=== PATIENT | female | born 1960 | race Caucasian/White ===

== ENCOUNTER 2016-05-11 11:36 | Outpatient (CLI) | payer BC ==
--- NOTE | 2016-05-12 13:01 | Mammography Report ---
BILATERAL MAMMOGRAM: FINDINGS: The breast tissue is heterogeneously dense, which could obscure detection of small masses (approximately 50%-75% glandular). No mass, distortion, suspicious calcification, or skin change is seen. There are no significant changes when compared to prior exams dating back to 2015. CAD was utilized. IMPRESSION: Negative mammogram. There is no mammographic evidence of malignancy. RECOMMENDATION: Follow-up per ACS guidelines. BI-RADS CATEGORY: 1 = Negative ACR BI-RADS MAMMOGRAPHIC CODES: 0 = Needs additional imaging evaluation; 1 = Negative; 2 = Benign; 3 = Probably benign; 4 = Suspicious; 5 = Malignant; 6 = Known biopsy-proven malignancy COMMENT: 1. Dense breast tissue, i.e., adenosis, fibrocystic changes, etc., may obscure an underlying neoplasm. 2. Approximately 10% of cancers are not detected with mammography. 3. A negative mammography report should not delay biopsy if a clinically suspicious mass is present. COMMENT: Patient follow-up letters are generated in [employer].
== END 2016-05-11 11:37 | disposition home or self-care (01) ==
LOC: SPVWC 11:36
PROVIDERS: ATTEND Obstetrics & Gynecology
DX: Z12.31 Encounter for screening mammogram for malignant neoplasm of breast (principal)
CPT/HCPCS: 77067; G0202

== ENCOUNTER 2017-05-12 11:07 | Outpatient (CLI) | payer OTHER ==
--- NOTE | 2017-05-13 11:33 | Mammography Report ---
BILATERAL DIGITAL SCREENING MAMMOGRAM with CAD: 05/12/17 11:07:00 CLINICAL: Routine screening. COMPARISON:05/11/16 FINDINGS: The breasts are heterogeneously dense, which may obscure small masses. Left asymmetry and architectural distortion on the MLO view requires additional imaging.No suspicious calcifications.The right breast is negative. IMPRESSION: Left asymmetry and architectural distortion requiring further workup. BI-RADS CATEGORY: 0 -- Additional Imaging Evaluation Required RECOMMENDATION: Recall for left mediolateral and spot magnification MLO views and left breast ultrasound if needed. ACR BI-RADS MAMMOGRAPHIC CODES: 0 = Needs additional imaging evaluation; 1 = Negative; 2 = Benign; 3 = Probably benign; 4 = Suspicious; 5 = Malignant; 6 = Known biopsy-proven malignancy COMMENT: 1. Dense breast tissue, i.e., adenosis, fibrocystic changes, etc., may obscure an underlying neoplasm. 2. Approximately 10% of cancers are not detected with mammography. 3. A negative mammography report should not delay biopsy if a clinically suspicious mass is present. COMMENT: Patient follow-up letters are generated via our [employer] application.
== END 2017-05-12 11:08 | disposition home or self-care (01) ==
LOC: SPVWC 11:07
PROVIDERS: ATTEND Nurse Practitioner Gerontology
DX: Z12.31 Encounter for screening mammogram for malignant neoplasm of breast (principal)
CPT/HCPCS: 77067

== ENCOUNTER 2017-05-30 09:30 | Outpatient (CLI) | payer OTHER ==
--- NOTE | 2017-05-30 10:53 | Mammography Report ---
Spot compression magnification of circumscribed focal asymmetry upper left breast followed by sonographic examination of upper left breast: Findings: On spot magnification view the density is not visualized and probably obscured by glandular tissue in the region. No microcalcification is seen. On sonographic examination there is there is complex hyperechoic oval mass fairly well defined margin with scattered areas of internal echogenicity noted at 1:00 position 7 cm from nipple. There is a benign lymph node measuring 0.8 x 0.3 cm in diameter noted in left axilla. 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 Probably benign. Six-month followup with a left mammogram and sonogram recommended. BI-RADS CATEGORY: 3 = Probably benign ACR BI-RADS MAMMOGRAPHIC CODES: 0 = Needs additional imaging evaluation; 1 = Negative; 2 = Benign; 3 = Probably benign; 4 = Suspicious; 5 = Malignant; 6 = Known biopsy-proven malignancy COMMENT: 1. Dense breast tissue, i.e., adenosis, fibrocystic changes, etc., may obscure an underlying neoplasm. 2. Approximately 10% of cancers are not detected with mammography. 3. A negative mammography report should not delay biopsy if a clinically suspicious mass is present.
== END 2017-05-30 09:31 | disposition home or self-care (01) ==
LOC: SPVWC 09:30
PROVIDERS: ATTEND Advanced Practice Midwife
DX: N63.20 Unspecified lump in the left breast, unspecified quadrant (principal); N64.59 Other signs and symptoms in breast

== ENCOUNTER 2017-08-05 08:38 | Outpatient (CLI) | payer OTHER ==
--- NOTE | 2017-08-05 10:26 | Ultrasound Report ---
Left mammogram: The patient presents for biopsy of what was described on recent ultrasound is probable fibroadenoma. Ultrasound today however does not identify any discrete finding as suggested on prior ultrasound on May 30. The area of interest demonstrates benign fibroglandular tissue. There were no mammographic findings at that time. The patient is asymptomatic. Impression: No current abnormality warranting biopsy identified. This was discussed with the patient. Recommendation: Annual mammogram and clinical followup. Any additional evaluation at this time should be based on your concern. BI-RADS CATEGORY: 2 = Benign ACR BI-RADS MAMMOGRAPHIC CODES: 0 = Needs additional imaging evaluation; 1 = Negative; 2 = Benign; 3 = Probably benign; 4 = Suspicious; 5 = Malignant; 6 = Known biopsy-proven malignancy COMMENT: 1. Dense breast tissue, i.e., adenosis, fibrocystic changes, etc., may obscure an underlying neoplasm. 2. Approximately 10% of cancers are not detected with mammography. 3. A negative mammography report should not delay biopsy if a clinically suspicious mass is present.
== END 2017-08-05 08:39 | disposition home or self-care (01) ==
LOC: SPVWC 08:38
PROVIDERS: ATTEND Surgery
DX: N63.20 Unspecified lump in the left breast, unspecified quadrant (principal)

== ENCOUNTER 2017-09-07 08:20 | Outpatient (CLI) | payer OTHER ==
--- NOTE | 2017-09-07 12:07 | Ultrasound Report ---
ABDOMINAL ULTRASOUND: 09/07/17 08:20:00 CLINICAL: Epigastric pain. FINDINGS: High-resolution ultrasound demonstrates a borderline small liver with moderate diffuse increased echogenicity. The right lobe measures 13.5 cm in length. A subtle nodular echo pattern but no liver mass identified. The hepatic veins and portal veins are relatively small. The gallbladder is partially contracted with no stones. The gallbladder wall is asymmetrically thick and measures 3.5mm maximum. Normal and hepatic bile ducts. The common bile duct is mildly enlarged in measures 6.0 mm diameter. No evidence of choledocholithiasis or obstructing mass. The pancreas is adequately imaged and normal. Normal abdominal aorta. A normal spleen measures 8.9cm. Normal size kidneys with normal parenchymal echogenicity and normal non-dilated renal collecting systems and ureters. The right kidney measures 12.0 x 5.6 x 5.3cm. The left kidney measures 11.2 x 5.3 x 4.4cm. A right lower pole cyst measures 1.1 x 0.8 x 1.0 cm. A shadowing echogenic focus in the lower pole of the right kidney measures 11 mm. No ascites or mass. IMPRESSION: 1. A borderline small echogenic liver with subtle nodularity is suggestive of cirrhosis. 2. No signs of portal hypertension. 3. No cholelithiasis or choledocholithiasis. 4. Mild dilatation of the CBD with no identified etiology. 5. A nonobstructive 11 mm right lower pole renal calculus. 6. Mild nonspecific gall bladder wall thickening.
== END 2017-09-07 08:21 | disposition home or self-care (01) ==
LOC: SPVWC 08:20
PROVIDERS: ATTEND Internal Medicine Gastroenterology
DX: N20.0 Calculus of kidney (principal); K21.9 Gastro-esophageal reflux disease without esophagitis; K30 Functional dyspepsia; K82.8 Other specified diseases of gallbladder
CPT/HCPCS: 76700

== ENCOUNTER 2017-11-03 06:59 | Outpatient (CLI) | payer OTHER ==
[2017-11-03 07:56] LABS: Blood Urea Nitrogen 19 mg/dL (7-17)
--- NOTE | 2017-11-03 11:03 | Magnetic Resonance Report ---
MRI ABDOMEN WITH AND WITHOUT CONTRAST HISTORY: Right and left upper quadrant abdominal pain, abnormal finding of GI tract, gallbladder polyp. TECHNIQUE: Multiple T1 and T2-weighted images with and without fat suppression. Postcontrast dynamic imaging following IV gadolinium. COMPARISON: Ultrasound abdomen dated 09/07/17. FINDINGS: The liver is normal size and contour on MR. Mild diffuse fatty infiltration is noted throughout the liver. There is no evidence for cirrhosis on MR. No suspicious liver mass. The hepatic vasculature is patent. The gallbladder and biliary system are unremarkable on MRI. No evidence for polyp, stones or abnormal dilatation. The CBD measures 5.7 mm. The pancreas, spleen and adrenal glands are unremarkable. Both kidneys are normal size, contour and position. 1 cm cyst near the inferior pole of the right kidney is noted. No suspicious mass or hydronephrosis. The aorta is normal caliber. The visualized bowel loops are unremarkable. The appendix is not included. Normal bone marrow signal in the visualized spine. No abnormal enhancement is demonstrated following IV gadolinium. IMPRESSION: Mild fatty infiltration of the liver. No evidence for cirrhosis on MR. Normal biliary system. 1 cm right renal cyst. Otherwise, unremarkable MR of the abdomen with and without contrast.
== END 2017-11-03 07:00 | disposition home or self-care (01) ==
LOC: MRI 06:59
PROVIDERS: ATTEND Internal Medicine Gastroenterology
DX: K82.4 Cholesterolosis of gallbladder (principal); R10.12 Left upper quadrant pain; R10.11 Right upper quadrant pain
CPT/HCPCS: 36415; 74183; 82565; 84520; A9577

== ENCOUNTER 2019-01-16 09:15 | Outpatient (CLI) | payer BC ==
--- NOTE | 2019-01-16 15:20 | Mammography Report ---
DIGITAL SCREENING MAMMOGRAM WITH CAD, 01/16/2019 INDICATION: Routine screening mammography. TECHNIQUE: Digital bilateral 2D mammography was obtained in the craniocaudal and mediolateral obliq ue projections. This examination was interpreted with the benefit of Computer-Aided Detection analysi s. COMPARISON: 05/12/2017 FINDINGS: Breast Density: The breasts are heterogeneously dense, which may obscure small masses. Left asymmetries require additional imaging. No architectural distortion or suspicious calcifications . There is no evidence of dominant mass, suspicious calcifications or architectural distortion in the right breast. IMPRESSION: Left asymmetries requiring additional imaging. Recommend recall for left spot magnificati on views and left breast ultrasound if needed. Follow up recommendation: Special View: Mag Category 0: Incomplete. Needs additional imaging evaluation and/or prior mammograms for comparison. A "normal" or negative report should not discourage follow up or biopsy of a clinically significant f inding. A written summary of these findings will be mailed to the patient. The patient will be entered into a mammography reporting system which will generate a reminder letter for the patient's next appointmen t at the appropriate interval. The [employer] recommends yearly mammograms starting at age 40 and continuing as l kacey as a woman is in good health. Breast MRI is recommended for women with an approximate 20-25% or greater lifetime risk of breast cancer, including women with a strong family history of breast or ova oksana cancer or who have been treated for Hodgkin's disease. Signer Name: Gerber Araujo MD Signed: 01/16/2019 3:15 PM Workstation Name: [id number]
== END 2019-01-16 09:16 | disposition home or self-care (01) ==
LOC: SPVWC 09:15
PROVIDERS: ATTEND Obstetrics & Gynecology
DX: Z12.31 Encounter for screening mammogram for malignant neoplasm of breast (principal)
CPT/HCPCS: 77067

== ENCOUNTER 2019-01-30 14:31 | Outpatient (CLI) | payer BC ==
--- NOTE | 2019-01-30 15:52 | Ultrasound Report ---
LEFT DIGITAL DIAGNOSTIC MAMMOGRAM WITH CAD -- 01/30/2019 LEFT LIMITED BREAST ULTRASOUND INDICATION: Recall to evaluate asymmetries. F/U abnormal mammogram TECHNIQUE: Digital left mammographic imaging was performed. Magnification views were obtained. Limit ed ultrasound was performed. This examination was interpreted with the benefit of Computer-Aided Dete ction (CAD) analysis. COMPARISON: 01/16/2018 FINDINGS: Breast Density: The breasts are heterogeneously dense, which may obscure small masses. MAMMOGRAPHIC FINDINGS: Additional mammographic views were performed and are negative. Satisfactory ef facement of asymmetries on spot magnification views. ULTRASOUND FINDINGS: Targeted ultrasound evaluation was performed of the area of interest. Ultrasou nd of the upper left breast was performed and demonstrated no mass, cyst or suspicious shadowing. A b enign intramammary lymph node at 1:00 13 cm from the nipple measures 1 cm. IMPRESSION: Negative mammogram and negative left upper breast ultrasound. Follow up recommendation: Routine yearly BI-RADS Category 1: Negative. A "normal" or negative report should not discourage follow up or biopsy of a clinically significant f inding. A written summary of these findings will be mailed to the patient. The patient will be entered into a mammography reporting system which will generate a reminder letter for the patient's next appointmen t at the appropriate interval. According to the [employer], yearly mammograms are recommended starting at age 40 and continuing as long as a woman is in good health. Breast MRI is recommended for women with an don[place] roximately 20-25% or greater lifetime risk of breast cancer, including women with a strong family his tory of breast or ovarian cancer and women who have been treated for Hodgkin's disease. Signer Name: Gerber Araujo MD Signed: 01/30/2019 3:48 PM Workstation Name: [id number]
== END 2019-01-30 14:32 | disposition home or self-care (01) ==
LOC: SPVWC 14:31
PROVIDERS: ATTEND Obstetrics & Gynecology
DX: R92.2 Inconclusive mammogram (principal); R92.8 Other abnormal and inconclusive findings on diagnostic imaging of breast

== ENCOUNTER 2019-12-11 14:13 | Outpatient (CLI) | payer OTHER ==
--- NOTE | 2019-12-11 17:20 | Ultrasound Report ---
BILATERAL DIGITAL DIAGNOSTIC MAMMOGRAM WITH CAD WITHOUT TOMOSYNTHESIS 12/11/2019 LEFT LIMITED BREAST ULTRASOUND INDICATION: Left upper quadrant intermittent breast pain TECHNIQUE: Digital bilateral mammographic imaging was performed. Limited ultrasound was performed. T his examination was interpreted with the benefit of Computer-Aided Detection (CAD) analysis. COMPARISON: 01/16/2019 Breast Density: The breasts are heterogeneously dense, which may obscure small masses. FINDINGS: MAMMOGRAPHIC FINDINGS: Mild benign-appearing bilateral calcifications are seen. No suspicious changes are noted. No abnormalities of significance are seen in the area of reported pain. ULTRASOUND FINDINGS: Targeted ultrasound evaluation was performed of the area of interest. No abnorma lities are seen in the area of reported intermittent pain. IMPRESSION: No significant abnormalities are seen Follow up recommendation: Clinical follow-up of reported pain BI-RADS Category 2: Benign. A "normal" or negative report should not discourage follow up or biopsy of a clinically significant f inding. A written summary of these findings will be mailed to the patient. The patient will be entered into a mammography reporting system which will generate a reminder letter for the patient's next appointmen t at the appropriate interval. According to the [employer], yearly mammograms are recommended starting at age 40 and continuing as long as a woman is in good health. Breast MRI is recommended for women with an donovan roximately 20-25% or greater lifetime risk of breast cancer, including women with a strong family his tory of breast or ovarian cancer and women who have been treated for Hodgkin's disease. Signer Name: Justo Berman MD Signed: 12/11/2019 5:15 PM Workstation Name: [id number]
== END 2019-12-11 14:14 | disposition home or self-care (01) ==
LOC: SPVWC 14:13
PROVIDERS: ATTEND Obstetrics & Gynecology
DX: N64.4 Mastodynia (principal)
CPT/HCPCS: 77066

== ENCOUNTER 2021-03-09 10:17 | Outpatient (CLI) | payer OTHER ==
--- NOTE | 2021-03-09 15:12 | Mammography Report ---
DIGITAL SCREENING MAMMOGRAM WITH CAD, 03/09/2021 CLINICAL INFORMATION / INDICATION: Routine screening mammography. TECHNIQUE: Digital bilateral 2D mammography was obtained in the craniocaudal and mediolateral obliqu e projections. This examination was interpreted with the benefit of Computer-Aided Detection analysis . COMPARISON: 12/11/2019, 01/30/2019, 01/16/2019 FINDINGS: Breast Density: The breasts are heterogeneously dense, which may obscure small masses. No dominant mass, suspicious calcifications, or architectural distortion in either breast. IMPRESSION: No mammographic evidence of malignancy. Follow up recommendation: Routine yearly BI-RADS Category 1: Negative. A "normal" or negative report should not discourage follow up or biopsy of a clinically significant f inding. A written summary of these findings will be mailed to the patient. The patient will be entered into a mammography reporting system which will generate a reminder letter for the patient's next appointmen t at the appropriate interval. The [employer] recommends yearly mammograms starting at age 40 and continuing as l kacey as a woman is in good health. Breast MRI is recommended for women with an approximate 20-25% or greater lifetime risk of breast cancer, including women with a strong family history of breast or ova oksana cancer or who have been treated for Hodgkin's disease. Signer Name: Jose Angel Spencer MD Signed: 03/09/2021 3:07 PM Workstation Name: [id number]
== END 2021-03-09 10:18 | disposition home or self-care (01) ==
LOC: SPVWC 10:17
PROVIDERS: ATTEND Obstetrics & Gynecology
DX: Z12.31 Encounter for screening mammogram for malignant neoplasm of breast (principal)
CPT/HCPCS: 77067